=== PATIENT | female | born 1975 | race Two or more races ===

== ENCOUNTER → 2024-02-17 | Outpatient (CLI) | payer MEDICAID, SELFPAY ==
--- NOTE | 2024-02-17 10:30 | XR_ITS ---
Examination: CT chest with intravenous contrast 2-D sagittal and coronal reconstructions Exam date and time: February 17, 2024 1217 hours Comparison July 24, 2023 INDICATIONS: CT chest July 24, 2023 11 mm pulmonary nodule right upper lobe 3 mm pulmonary nodule right middle lobe CTDI:vol (mGy) 13.3 DLP: (mGycm) 481 Technique: Multiple axial sections of the thorax have been obtained. Sections have been obtained, 3 mm slice thickness. Mediastinal and lung density settings have been obtained. Intravenous contrast administered, 60 cc Isovue-370. 2-D sagittal, coronal images obtained. Low dose protocols were performed. One or more of the following dose reduction techniques were used; automated exposure control, adjustment of the mA and/or KV according to patient size, use of iterative reconstruction technique. Findings: Enlarged left thyroid lobe extending substernal No thoracic aortic aneurysm dilatation Pulmonary artery segments are not enlarged Stable 10 mm pulmonary nodule spiculated margins right upper lobe Stable 3 mm pulmonary nodule in the right middle lobe No new pulmonary nodules No pneumonia or pulmonary edema No visualized liver or splenic lesion No gallstones No pancreatic or adrenal mass No hydronephrosis IMPRESSION: Stable 2 mm pulmonary nodule right upper lobe Stable 3 mm pulmonary nodule right middle lobe No new pulmonary nodules
[2024-02-17 11:24] LABS: HCG Qualitative,Urine Negative
== END | disposition home or self-care (01) ==
LOC: CCTX 10:22
PROVIDERS: PCP Nurse Practitioner Family; Referring Provider Nurse Practitioner Family; Visit Provider Nurse Practitioner Family
DX: R91.8 Other nonspecific abnormal finding of lung field (principal); Z32.00 Encounter for pregnancy test, result unknown
CPT/HCPCS: 71260; 81025; A4649; Q9967

== ENCOUNTER 2024-11-07 11:27 | Emergency (ER) | payer MEDICAID, SELFPAY ==
[2024-11-07 11:38] VITALS: BP 160/83; PULSE 95; RESP 16; TEMP 36.8; O2SAT 99; BMI 32.3
--- NOTE | 2024-11-07 11:58 | EDNOTE_ITS ---
<Statement entered by Cande Giron MD - 11/08/24 06:28> As co-signing physician, I was present and available for consult prn. I concur with the plan and care as documented by the midlevel provider. ED Skin Abcess FB-RME/HPI General Chief complaint: Skin/Abscess/Foreign Body Stated complaint: Rash X 30 days Time Seen by Provider: 11/07/24 11:38 Arrival date/time: 11/07/24 11:27 RME / HPI RME / HPI narrative: 49-year-old female patient came in for evaluation regarding erythematous rashes scattered all over. Is been going for the last 15 days, with itchiness, scattered all over. Patient was seen by PCP and was given steroid cream with no relief. Was also given hydroxyzine however patient refused to drink it due to adverse effect. Denies any ill contacts. 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 Related Data Previous Rx's ?Medication ?Instructions ?Recorded diphenhydramine HCl 25 mg capsule 50 mg (2 x 25 mg) PO TID PRN 11/07/24 (Aler-Cap) allergic reaction #30 caps famotidine 20 mg tablet (Pepcid) 20 mg PO BID #14 tabs 11/07/24 prednisone 20 mg tablet See Taper PO QDAY #13 tabs 0 11/07/24 Allergies Allergy/AdvReac Type Severity Reaction Status Date / Time No Known Allergies Allergy Uncoded 11/07/24 11:31 Review of Systems Review of Systems Narrative Review of Systems: Review of system reviewed and within normal limits except mentioned in HPI ED Exam Narrative Physical exam: VITAL SIGNS: Reviewed. GENERAL APPEARANCE: Alert and interactive, follows commands, no acute distress, HEAD AND FACE: Non-traumatic. ENT: PERRL, pink conjunctivitis, eyelid no trauma, Mucous membrane moist. NECK: Supple, nontender, no nuchal rigidity. CHEST: No tenderness, no crepitus, no paradoxical movement, no retractions. LUNGS: Clear, well ventilated, symmetric, no rales, no wheezing, no ronchi, no stridor, good breath sounds bilaterally. HEART: Regular rate, regular rhythm, no murmur, no gallops. ABDOMEN: Soft, positive bowel sounds, nondistended, no guarding, nontender, no rebound, no masses, RECTAL: Deferred. GENITAL: Deferred. NEUROLOGICAL: Gross motor function intact sensory function intact, Appropriate for age. MUSCULOSKELETAL: low back nontender, full range of motion. EXTREMITIES: Nontender, full range of motion. SKIN: Color pink, dry, erythematous rash scattered all over, no lacerations, no abrasions, no contusions. LYMPHATICS: Deferred. Course Quality Measures none Orders Category Date Time Status CBC [CBC] Stat Lab 11/07/24 12:10 Completed CMP [Comprehensive Metabolic Panel] Stat Lab 11/07/24 12:10 Completed PTT [Partial Thromboplastin Time] Stat Lab 11/07/24 12:10 Completed Dexamethasone Inj [Decadron Inj] Med 11/07/24 11:58 Discontinued 10 mg IM X1 ONE DiphenhydrAMINE INJ [Benadryl Inj] Med 11/07/24 11:58 Discontinued 50 mg IM X1 ONE Famotidine [Pepcid] Med 11/07/24 11:58 Discontinued 40 mg PO X1 ONE Vital Signs Vital signs: Vital Signs Temperature 98.2 F 11/07/24 11:38 Pulse Rate 95 11/07/24 11:38 Respiratory Rate 16 11/07/24 11:38 Blood Pressure 160/83 H 11/07/24 11:38 Pulse Oximetry (%) 99 11/07/24 11:38 Oxygen Delivery Method Room Air 11/07/24 11:38 Skin / Abscess / Foreign Body MDM Narrative MDM Narrative:: 49-year-old female patient came in for evaluation regarding erythematous rashes scattered all over. Is been going for the last 15 days, with itchiness, scattered all over. Patient was seen by PCP and was given steroid cream with no relief. Was also given hydroxyzine however patient refused to drink it due to adverse effect. Denies any ill contacts. 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 Patient workup all came back normal LFTs are normal. Patient was advised to follow-up with PCP and asked for referral to geographical historian. I sent this patient home on on prednisone taper dose, Benadryl and Pepcid Patient appears nontoxic and hemodynamically stable .Decision to discharge the patient. The patient/family was given an opportunity to ask questions and understood their discharge instructions. Discharge instructions specifically included follow up provider and time frame, current and/or new medications and possible side effects, indications for sooner follow up or return to the emergency department, and the expected course of current diagnosis. Patient reports feeling better as well and giving evidence of significant clinical improvement, I believe patient is now a candidate for discharge. Patient data External records reviewed:: None Clinical information provided by:: patient Social determinants that could affect healthcare access:: none Patient has the following chronic illnesses:: None How is presenting disease/condition affected by chronic disease/condition?: no chronic disease Evaluation data The following diagnostics were reviewed and interpreted by me:: lab results Lab and/or radiology exams considered but not ordered:: None Interpretation Summary: See results MDM Medications / Prescriptions Medications or Prescriptions considered but not ordered:: None Medication administrations:: Medication Administration History Discontinued Medications Dexamethasone Sodium Phosphate (Dexamethasone Sod Phos Inj 10 Mg/Ml Vial) 10 mg IM X1 ONE Stop: 11/07/24 11:59 Last Admin: 11/07/24 12:09 Dose: 10 mg Documented By: JOSÉ ANTONIO Diphenhydramine HCl (Diphenhydramine Inj 50 Mg/Ml Vial) 50 mg IM X1 ONE Stop: 11/07/24 11:59 Last Admin: 11/07/24 12:08 Dose: 50 mg Documented By: JOSÉ ANTONIO Famotidine (Famotidine 20 Mg Tablet) 40 mg PO X1 ONE Stop: 11/07/24 11:59 Last Admin: 11/07/24 12:08 Dose: 40 mg Documented By: JOSÉ ANTONIO Decadron IM, Pepcid Benadryl. Consultations Consultation(s) initiated? (list below): No Diagnosis Skin/Abscess Differential Diagnosis: viral exanthem, cellulitis and contact dermatitis Most likely diagnosis given after review of the tests above:: Contact dermatitis Admission Indicated Admission indicated?: not indicated Admission Request Was there a request for admission?: No Disposition Plan Disposition Plan: Discharge Discharge Attestation Discharge Attestation: The patient and all family members were given an opportunity to ask questions and understood the discharge instructions. Discharge instructions specifically effects, indications for sooner follow up or return to the emergency department, and the expected course of current diagnosis. Patient condition: Stable Discharge Plan Plan Patient Disposition: HOME (Self Care) Discharge Disposition comment: Stable Prescriptions/Referrals Prescriptions/Med Rec: New prednisone 20 mg tablet See Taper PO QDAY Qty: 13 0RF Taper: Prednisone Taper 60 mg DAILY for 2 Days and 0 Hour 40 mg DAILY for 2 Days and 0 Hour 20 mg DAILY for 2 Days and 0 Hour 10 mg DAILY for 2 Days diphenhydramine HCl [Aler-Cap] 25 mg capsule 50 mg PO TID PRN (Reason: allergic reaction) Qty: 30 0RF famotidine [Pepcid] 20 mg tablet 20 mg PO BID Qty: 14 0RF Referrals: Tiffanie Bautista MD [Primary Care Provider] - In 1 week Problem List Clinical Impression: Contact dermatitis Patient/Caregiver Discharge Instructions Discharge Activity: activity as tolerated Education Materials: ED Contact Dermatitis Additional Instructions: Thank you for the opportunity for serving you today. You are stable for discharged . You are advised to: Follow-up with your PCP in 1 to 2 days and asked for referral to geographical historian Return to ED for worsening of symptoms Increase oral fluids Take medication as prescribed Prednisone 60 mg daily for 2 days then 40 mg daily for 2 days then 20 mg daily for 2 days then 10 mg daily for 2 days and stop Print Language: French Stand Alone Forms: Ignacia Award Info., Patient Portal Info Letter MARY/[place] Supervising Physician MARY/[place] Supervising Physician: MD Mack
[2024-11-07] MEDS: FAMOTIDINE 20 MG TABLET 40 MG PO (12:08)
[2024-11-07] MEDS: DEXAMETHASONE SOD PHOS INJ 10 MG/ML VIAL IM (12:09)
[2024-11-07 12:49] LABS: Basophils # (Auto) 0.0 Thou/mm3 (0.0-0.2); Basophils % (Auto) 0 % (0-2.5); Eosinophils # (Auto) 1.3 Thou/mm3 (0.0-0.5); Eosinophils % (Auto) 13 % (0-10); Hematocrit 37.4 % (36.0-46.0); Hemoglobin 12.2 g/dL (12.0-16.0); Immature Granulocytes Auto 0.04 Thou/mm3 (0.00-0.00); Lymphocytes # (Auto) 1.2 Thou/mm3 (1.0-4.8); Lymphocytes % (Auto) 12 % (10-50); Mean Corpuscular HGB Conc 32.6 g/dl (31.0-37.0); Mean Corpuscular Hemoglobin 29.3 pg (25.0-35.0); Mean Corpuscular Volume 90 fL (80-100); Monocytes # (Auto) 0.8 Thou/mm3 (0.0-0.8); Monocytes % (Auto) 8 % (0-12); Neutrophils # (Auto) 6.7 Thou/mm3 (1.8-7.7); Neutrophils % (Auto) 67 % (37-80); Nucleated Red Blood Cell # 0.00 Thou/mm3 (0.00-0.00); Nucleated Red Blood Cell % 0 /100 WBC (0); Platelet Count 183 Thou/mm3 (140-440); RDW Standard Deviation 45.1 fL (36.4-46.3); Red Blood Count 4.16 Miln/mm3 (4.00-5.20); White Blood Count 10.0 Thou/mm3 (3.6-11.0)
[2024-11-07 12:57] LABS: Partial Thromboplastin Time 28.2 Seconds (22.0-36.0)
[2024-11-07 13:02] LABS: Alanine Aminotransferase 15 U/L (10-49); Albumin, Serum 4.2 gm/dL (3.5-5.0); Albumin/Globulin Ratio 1.5 (1.2-2.2); Alkaline Phosphatase 80 U/L (46-116); Anion Gap 9 (7-16); Aspartate Amino Transferase 19 U/L (0-34); BUN/Creatinine Ratio 19 Ratio (12-20); Bilirubin,Total 0.6 mg/dL (0.3-1.2); Blood Urea Nitrogen 13 mg/dL (9-23); Calcium 9.3 mg/dL (8.3-10.6); Calcium (Corrected) 9.3 mg/dL (8.5-10.1); Carbon Dioxide 26.7 mMol/L (20.0-31.0); Chloride 103 mMol/L (98-107); Creatinine (Component) 0.7 mg/dL (0.6-1.3); Estimated Creatinine Clearance 93.3 mL/min (>60); Globulin 2.8 gm/dL (2.3-3.5); Glucose 118 mg/dL (74-106); Osmolality,Calculated 278 (275-295); Potassium 4.2 mMol/L (3.4-5.1); Sodium 139 mMol/L (136-145); Total Protein 7.0 gm/dL (5.7-8.2); eGFR > 60 See Note
[2024-11-07 14:01] VITALS: BP 122/76; PULSE 65; RESP 16; TEMP 36.6; O2SAT 100
== END 2024-11-07 14:02 | disposition home or self-care (01) ==
PROVIDERS: Nurse Practitioner Family; Emergency Provider Emergency Medicine; PCP Obstetrics & Gynecology
DX: L25.9 Unspecified contact dermatitis, unspecified cause (principal)
CPT/HCPCS: 36415; 80053; 85025; 85730; 96372; 99283; J1100; J1200; A9270

== ENCOUNTER 2024-11-21 15:57 | Emergency (ER) | payer MEDICAID, SELFPAY ==
[2024-11-21 15:59] VITALS: BMI 32.5
[2024-11-21 16:35] VITALS: BP 169/83; PULSE 105; RESP 16; TEMP 37.2; O2SAT 97
--- NOTE | 2024-11-21 16:49 | PD.EDSKIN ---
ED Skin Abcess FB-RME/HPI General Chief complaint: Skin/Abscess/Foreign Body Stated complaint: RASH X2 WEEKS Time Seen by Provider: 11/21/24 16:22 Arrival date/time: 11/21/24 15:57 Limitations: no limitations RME / HPI RME / HPI narrative: 49-year-old female patient came in for evaluation regarding erythematous rashes scattered all over. States was seen here about 3 weeks ago with itchiness, scattered all over. What ever medication was given here states it worked. Patient was seen by PCP and was given steroid cream with no relief. Then was told all she needed was Vaseline was also given hydroxyzine. Denies any ill contacts. 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 They have not done further testing to see if she is allergic to something. No fevers no history of HIV or otherwise immunocompromise Related Data Previous Rx's ?Medication ?Instructions ?Recorded diphenhydramine HCl 25 mg capsule 50 mg (2 x 25 mg) PO TID PRN 11/07/24 (Aler-Cap) allergic reaction #30 caps famotidine 20 mg tablet (Pepcid) 20 mg PO BID #14 tabs 11/07/24 prednisone 20 mg tablet See Taper PO QDAY #13 tabs 11/07/24 famotidine 40 mg tablet (Pepcid) 40 mg PO QDAY #30 tabs 11/21/24 prednisone 20 mg tablet 60 mg PO QDAY 5 days #15 tabs 11/21/24 Allergies Allergy/AdvReac Type Severity Reaction Status Date / Time No Known Allergies Allergy Uncoded 11/07/24 11:31 Review of Systems Review of Systems Systems Reviewed: All systems reviewed, normal except as documented Constitutional Constitutional: Denies fever(s) Integumentary/Breasts Skin/Breast: Reports system reviewed and no additional complaints, except as documented ED Exam General Limitations: Present no limitations General appearance: Present alert and in no apparent distress Eye Eye exam: Present normal appearance, PERRL and EOMI Respiratory Respiratory exam: Present normal lung sounds bilaterally Cardiovascular Cardiovascular exam: Present regular rate, normal rhythm and normal heart sounds Abdominal Exam Abdominal exam: Present soft and normal bowel sounds Extremities Exam Extremities exam: Present normal inspection and full ROM Back Exam Back exam: Present normal inspection and full ROM Skin Skin exam: Present other (Excoriation throughout skin, blanching redness to arms and torso.) Course Quality Measures none Orders Category Date Time Status Dexamethasone Inj [Decadron Inj] Med 11/21/24 16:49 Discontinued 10 mg PO X1 ONE DiphenhydrAMINE [Benadryl] Med 11/21/24 16:49 Discontinued 50 mg PO X1 ONE Famotidine [Pepcid] Med 11/21/24 16:49 Discontinued 40 mg PO X1 ONE Vital Signs Vital signs: Vital Signs Temperature 98.9 F 11/21/24 16:35 Pulse Rate 105 H 11/21/24 16:35 Respiratory Rate 16 11/21/24 16:35 Blood Pressure 169/83 H 11/21/24 16:35 Pulse Oximetry (%) 97 11/21/24 16:35 Oxygen Delivery Method Room Air 11/21/24 16:35 Skin / Abscess / Foreign Body MDM Narrative MDM Narrative:: Discussed with patient the risks of recurrent corticosteroid use. Advised she should follow-up with PCP and have RAST testing for her condition. No workup done today as she had an extensive workup during her last ED stay. Advise follow-up with PCP and request testing and possible referral to Derm versus marketing program coordinator. Return to ER symptoms worsen Patient data External records reviewed:: [facility] previous records Clinical information provided by:: patient and family (on phone ) Social determinants that could affect healthcare access:: other (specify) (No PCP appointment with) Patient has the following chronic illnesses:: Hypertension How is presenting disease/condition affected by chronic disease/condition?: uneffected by Evaluation data The following diagnostics were reviewed and interpreted by me:: other (specify) Lab and/or radiology exams considered but not ordered:: Workup was considered however patient had workup less than 3 weeks ago Interpretation Summary: No imaging or labs Medications / Prescriptions Medications or Prescriptions considered but not ordered:: All medications considered were ordered Medication administrations:: Medication Administration History Discontinued Medications Dexamethasone Sodium Phosphate (Dexamethasone Sod Phos Inj 10 Mg/Ml Vial) 10 mg PO X1 ONE Stop: 11/21/24 16:50 Last Admin: 11/21/24 17:15 Dose: 10 mg Documented By: TIANNA Diphenhydramine HCl (Diphenhydramine Elix 25 Mg/10 Ml c) 50 mg PO X1 ONE Stop: 11/21/24 16:50 Last Admin: 11/21/24 17:15 Dose: 50 mg Documented By: TIANNA Famotidine (Famotidine 20 Mg Tablet) 40 mg PO X1 ONE Stop: 11/21/24 16:50 Last Admin: 11/21/24 17:16 Dose: 40 mg Documented By: TIANNA See above Consultations Consultation(s) initiated? (list below): No Diagnosis Skin/Abscess Differential Diagnosis: abscess of skin or subcutaneous tissue, urticaria, allergic reaction to drug, cellulitis, eczema, insect bites, impetigo and contact dermatitis Most likely diagnosis given after review of the tests above:: Allergic reaction possibly to drug terbinafine Admission Indicated Admission indicated?: not indicated Admission Request Was there a request for admission?: No Disposition Plan Disposition Plan: Discharge Discharge Attestation Discharge Attestation: The patient and all family members were given an opportunity to ask questions and understood the discharge instructions. Discharge instructions specifically effects, indications for sooner follow up or return to the emergency department, and the expected course of current diagnosis. Patient condition: Stable Discharge Plan Plan Patient Disposition: HOME (Self Care) Discharge Disposition comment: Follow-up with PCP in 2 to 3 days for RAST testing Prescriptions/Referrals Prescriptions/Med Rec: New famotidine [Pepcid] 40 mg tablet 40 mg PO QDAY Qty: 30 0RF prednisone 20 mg tablet 60 mg PO QDAY 5 Days Qty: 15 0RF Taper: Prednisone Taper 20 mg DAILY for 2 Days and 0 Hour 10 mg DAILY for 2 Days and 0 Hour 5 mg DAILY for 7 Days and 0 Hour No Action prednisone 20 mg tablet See Taper PO QDAY Qty: 13 0RF Taper: Prednisone Taper 60 mg DAILY for 2 Days and 0 Hour 40 mg DAILY for 2 Days and 0 Hour 20 mg DAILY for 2 Days and 0 Hour 10 mg DAILY for 2 Days diphenhydramine HCl [Aler-Cap] 25 mg capsule 50 mg PO TID PRN (Reason: allergic reaction) Qty: 30 0RF famotidine [Pepcid] 20 mg tablet 20 mg PO BID Qty: 14 0RF Problem List Clinical Impression: Urticaria, Allergic Patient/Caregiver Discharge Instructions Education Materials: ED Hives (Adult) Print Language: Nigerian Stand Alone Forms: Ignacia Award Info., Patient Portal Info Letter PA/LAUNDRY AGENT Supervising Physician PA/LAUNDRY AGENT Supervising Physician: Dr. Zaragoza
[2024-11-21] MEDS: DEXAMETHASONE SOD PHOS INJ 10 MG/ML VIAL PO (17:15)
[2024-11-21] MEDS: DiphenhydrAMINE ELIX 25 MG/10 ML UDC 50 MG PO (17:15)
[2024-11-21] MEDS: FAMOTIDINE 20 MG TABLET 40 MG PO (17:16)
[2024-11-21 17:51] VITALS: BP 138/76; PULSE 66; RESP 18; TEMP 36.6; O2SAT 100
--- NOTE | 2024-11-21 17:51 | PC.NURSE ---
s/s of alalergic rxn clearing up, up told to return should s/s return
== END 2024-11-21 17:53 | disposition home or self-care (01) ==
LOC: SERX 17:29
PROVIDERS: Emergency Provider Family Medicine; PCP Obstetrics & Gynecology
DX: L50.0 Allergic urticaria (principal)
CPT/HCPCS: 99283; J1100; A9270